=== PATIENT | male | born 1940 | race Caucasian/White ===

== ENCOUNTER 2018-11-12 15:01 | Inpatient (IN) ==
--- NOTE | 2018-11-12 16:01 | Diag Imaging Result Doc PS360 ---
EXAM: CHEST-1 VIEW - 11/12/2018 HISTORY: r/o pneumonia TECHNIQUE: One view chest COMPARISON: None. FINDINGS: Heart size appears normal. There are sternal wires from previous surgery. Inspiration is mildly shallow. There is subsegmental atelectasis at the left base. There is ill-defined infiltrate at the right base. There is chronic appearing deformity of the posterior right fifth rib. IMPRESSION: Mildly shallow inspiration, with mild segmental atelectasis at left base. Ill-defined infiltrate at right base suspicious for pneumonia. Electronically signed by Luis Bocanegra 11/12/2018 3:58 PM
[2018-11-12 16:14] LABS: BLOOD TYPE ARTERIAL; HCO3-(ACT) 25.6 mmoll (20.0-26.0); METHB 1.2 % (0.0-1.5); O2(CT) 18.1 mL/dL (15.0-23.0); O2HB 92.5 % (95.0-99.0); PCO2(98.6) 38 mmHg (35-45); PO2(98.6) 66 mmHg (60-100); SAMPLE BLOOD; SAO2 96.5 % (95.0-100.0); THB 13.9 g/dL (11.5-17.4); pH(98.6) 7.43 (7.35-7.45)
[2018-11-12 16:17] LABS: ALLEN TEST YES; MODALITY CANNULA
[2018-11-12 16:28] LABS: HEMOGLOBIN 13.2 g/dL (14.0-18.0); LYMPH% 9.3 % (20.5-51.1); MCH 30.7 PG (27-31); MCHC 33.8 g/dL (33-37); MCV 90.7 FL (81-99); MONO% 11.6 % (1.7-9.3); MPV 9.8 FL (7.4-10.4); NEUT% 78.7 % (42.2-75.2); PLT 199 X1000 (130-400); RDW 12.5 % (11.5-14.5); WBC 11.66 X1000 (4.8-10.8)
[2018-11-12 16:29] LABS: BASO# 0.01 X1000 (0.0-0.2); BASO% 0.1 % (0.0-0.8); IMM GRAN# 0.03 X1000 (0.0-0.04); IMM GRAN% 0.3 % (0.0-0.5); LYMPH# 1.08 X1000 (1.2-3.4); MONO# 1.35 X1000 (0.11-0.59); NEUT# 9.19 X1000 (1.4-6.5)
[2018-11-12] MEDS ORDERED: ZITHROMAX 500 MG/NS 500 MG/250 ML IVPB IV ONE (16:35)
[2018-11-12] MEDS ORDERED: ROCEPHIN IV ONE (16:35)
[2018-11-12 16:39] LABS: AGAP 14; ALKALINE PHOSPHATASE 72 U/L (32-122); BUN 26 mg/dL (8-22); CALCIUM 9.3 mg/dL (8.8-10.2); CHLORIDE 98 mmol/L (98-107); CK PROFILE 54 U/L (24-204); COSMO 279; CREATININE 1.1 mg/dL (0.7-1.2); ESTIMATED GFR > 60; GLUCOSE 132 mg/dL (70-104); GOT 17 U/L (10-34); GPT 13 U/L (10-44); POTASSIUM 4.3 mmol/L (3.5-5.1); SODIUM 136 mmol/L (136-145); TCO2 24 mmol/L (25-35); TOTAL PROTEIN 6.5 g/dL (6.3-8.3)
[2018-11-12 16:59] LABS: BILIRUBIN URINE NEGATIVE (NEGATIVE); BLOOD URINE NEGATIVE (NEGATIVE); CLARITY CLEAR (CLEAR); COLOR YELLOW; GLUCOSE URINE NEGATIVE (NEGATIVE); KETONE URINE TRACE mg/dL (NEGATIVE); LEUKOCYTES URINE TRACE (NEGATIVE); NITRITE URINE NEGATIVE (NEGATIVE); PROTEIN URINE 1+(30 mg/dL) mg/dL (NEGATIVE); UROBILINOGEN URINE 1 mg/dL
[2018-11-12 17:00] LABS: URINE BACTERIA NEGATIVE /HFP; URINE CAST GRANULAR PRESENT /LPF; URINE EPITHELIAL CELLS <10 /HPF (<10); URINE RBC <10 /HPF (<10); URINE SOURCE CLEAN CATCH; URINE WBC <10 /HPF (<10)
[2018-11-12 17:30] LABS: INR 1.26; PROTIME 16.4 Seconds (11.0-16.0)
[2018-11-12 17:31] LABS: PTT 35.8 Seconds (22.3-41.8)
--- NOTE | 2018-11-12 17:54 | Diag Imaging Result Doc PS360 ---
EXAM: CT ANGIOGRM PULMONARY ARTERIES 11/12/2018 HISTORY: rule out PE TECHNIQUE: This exam was performed using automated exposure control, adjustment of mA or kV according to patient size, and/or use of iterative reconstruction technique. COMMENT: 3-D MIPS were performed. There are no previous studies available for comparison. There are no filling defects in the pulmonary arteries. There are atherosclerotic calcified and noncalcified plaques in the thoracic aorta. There are calcifications in the coronary arteries and there has been previous sternotomy. There is no evidence of aortic dissection or aneurysm. The descending aorta is quite tortuous and passes over to the right before passing back through the hiatus. Considerable plaque is present at the level of the distal thoracic aorta. There is a large hiatal hernia. There is a large infrarenal abdominal aorta which is only partially imaged. This is at least 6 cm in diameter. 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 There is a previous abdominal study from 09/04/2010 at which time the abdominal aorta measured up to 4.6 cm. There is a small calcified gallstone in the gallbladder. There are granulomata in the spleen. There is COPD. There is some tree-in-bud opacities in both upper lobes and patchy alveolar opacities in the right lower lobe and posterior costophrenic sulci of both lower lobes. This is probably indicative of bronchopneumonia. IMPRESSION: 1. Bronchopneumonia. 2. Abdominal aortic aneurysm exceeding 6 cm in diameter. Electronically signed by Lorenzo Cope 11/12/2018 5:52 PM
[2018-11-12 19:56] LABS: INFLUENZA A NEGATIVE (NEGATIVE); INFLUENZA B NEGATIVE (NEGATIVE)
[2018-11-12] MEDS ORDERED: NS 1,000 ML IV ONE (20:24)
[2018-11-12] MEDS ORDERED: ZOFRAN IV PRN (20:24)
[2018-11-12] MEDS ORDERED: TYLENOL PO PRN (20:24)
--- NOTE | 2018-11-13 01:41 | HISTORY AND PHYSICAL ---
HISTORY OF PRESENT ILLNESS: The patient came in for shortness of breath. He is an 78-year-old gentleman with history of COPD, CAD, I do not think he is diabetic, high blood pressure, but in any case, he came in for evaluation. He is a patient of Dr. Julian in [place], previously in [place]. Has never been admitted curiously, at least not at this facility. He has been feeling short of breath with cough for the last 24 hours. He had a fever of 102. He was seen at Dr. Julian's office and he recommended going to the ER for evaluation for admission. He was a bit tachycardic when he came in. That has since improved. He is in the low 100s. He was hypoxic. Pulmonary angiogram showed bronchopneumonia which was mostly in the upper lobes and in the right lower lobe and he was admitted for treatment. PAST MEDICAL HISTORY: 1. Again, COPD. 2. CAD status post CABG, PCI. 3. Hypertension. 4. Dyslipidemia. 5. GERD with esophageal stricture. 6. History of CVA. PAST SURGICAL HISTORY: He has had the CABG that was in 2009. He is due for AAA surgery. They have been monitoring it since his CABG, but he has refused surgery. He sees Dr. Guy in [place], who is a vascular surgeon. He actually sent him to [facility] and the patient declined surgery after consultation there. He has a 6 cm AAA that he is not getting treatment for it and it looks like there is mural thrombus in it. FAMILY HISTORY: Positive for CAD in father. His brother had cancer, GI cancer, either pancreatic or possibly colon. They are not completely aware. SOCIAL HISTORY: No tobacco or ethanol. He is retired, . REVIEW OF SYSTEMS: Otherwise negative times a 10 point review of systems. PHYSICAL EXAMINATION: VITAL SIGNS: Blood pressure 110/68, heart rate of 104, respiratory rate of 24, temperature 98.4 degrees, 92% on 2 L. CARDIOVASCULAR: Regular rate and rhythm. PULMONARY: He had rales in both bases. No rhonchi. No wheezing. GASTROINTESTINAL: Soft, nontender, nondistended. Bowel sounds are positive. EXTREMITY: No clubbing or cyanosis. LYMPHATIC: No peripheral edema. NEUROLOGICAL: Exam was nonfocal. EYES: Pupils equal, round, reactive to light. Extraocular movements were intact. EAR NOSE AND THROAT: He had moist mucous membranes. SKIN: He had some telangiectasias on his face. MUSCULOSKELETAL: 4/5 in all 4 extremities. He had trace pulmonary edema. LABORATORY DATA: I do not think he had a very much of a white count, 11.6, hemoglobin and hematocrit 13 and 39, platelets of 199,000. Coagulation studies okay. PH 7.43, pCO2 of 38, PaO2 of 66. BUN is 26. ASSESSMENT: An 78-year-old male with chronic obstructive pulmonary disease and coronary artery disease presenting with shortness of breath, and cough, and hypoxia, fever and evidence of broncho pneumonia. 1. Bronchopneumonia. We will continue empiric antibiotics. He has been placed on Rocephin and azithromycin. I think that is reasonable so we will see how that works. We will give him breathing treatments, pulmonary toilet and follow. He does not have a lot of wheezing at this point so I am not going to add steroids. 2. Coronary artery disease, appears to be compensated. It is not clear that he has any heart failure. We will continue to monitor. He looks a bit on the dry side if anything. We will obtain all his home medications. At this point, I have no home medications whatsoever to verify and follow. DISPOSITION: Pending his clinical status. cc: Raoul Pruitt MD
[2018-11-13] MEDS ORDERED: DUONEB (A & A) INH PRN (09:12)
[2018-11-13] MEDS ORDERED: ROCEPHIN 1 GM in NS 50 ML IV SCH ×2 (09:15→17:00)
[2018-11-13] MEDS: SYMBICORT 160/4.5 MICROGM INHALER INH SCH ×2 (10:00→22:33)
[2018-11-13] MEDS: DUONEB (A & A) INH SCH ×3 (10:32→22:33)
[2018-11-13] MEDS ORDERED: MAALOX PLUS LIQUID PO PRN (10:47)
[2018-11-13] MEDS: ZITHROMAX 500 MG/NS 500 MG/250 ML IVPB IV SCH (10:59)
--- NOTE | 2018-11-13 11:04 | EKG Report ---
Test Performed on : 11/12/2018 3:33:37 PM Test Reason : ER Blood Pressure : / mmHG Vent. Rate : 122 BPM Atrial Rate : 122 BPM P-R Int : 184 ms QRS Dur : 100 ms QT Int : 298 ms P-R-T Axes : 056 025 072 degrees QTc Int : 424 ms Sinus tachycardia. with premature supraventricular complexes. Possible Inferior infarct , age undetermined Abnormal ECG No previous ECGs available Unconfirmed Result
[2018-11-13] MEDS: BENICAR PO SCH (11:08)
[2018-11-13] MEDS: PLAVIX PO SCH (11:08)
[2018-11-13] MEDS: ASPIRIN EC PO SCH (11:08)
[2018-11-13] MEDS: TOPROL XL PO SCH ×2 (11:09→21:16)
[2018-11-13] MEDS ORDERED: VITAMIN D PO SCH (17:00)
[2018-11-13] MEDS ORDERED: VITAMIN C PO SCH (17:00)
[2018-11-13] MEDS ORDERED: VITAMIN B-12 PO SCH (17:00)
[2018-11-13] MEDS ORDERED: VITAMIN E PO SCH (17:00)
[2018-11-13] MEDS ORDERED: FISH OIL CONCENTRATE PO SCH (17:00)
[2018-11-13] MEDS ORDERED: THERA M PLUS PO SCH (17:00)
--- NOTE | 2018-11-13 17:03 | PROGRESS NOTE ---
DATE: 11/13/2018 SUBJECTIVE: Patient has no focal complaints. OBJECTIVE: Blood pressure is 124/67, heart rate 97, respiratory rate 18, temperature 97.5 degrees, 95% on 2 L.Cardiovascular: Regular rate and rhythm. Pulmonary: Diminished at the bases. No wheezing or rales. GI: Soft, nontender, nondistended. Bowel sounds are positive. LABORATORY DATA: No new labs today. PROBLEM LIST: 1. Pneumonia. Bilateral lower lobe pneumonia, bronchopneumonia. We will continue empiric antibiotics. He is on Rocephin and azithromycin. Continue pulmonary toilet and incentive spirometry and follow clinically. 2. Chronic obstructive pulmonary disease without large exacerbation. We will continue breathing treatments and follow. I have not pursued any other etiology. 3. Hypertension. We will continue his regular medications and follow. DISPOSITION: Pending his clinical status, but if we can get him off oxygen, possibly discharge him tomorrow. cc: Raoul Pruitt MD
[2018-11-13] MEDS ORDERED: ZOCOR PO SCH (21:00)
[2018-11-13] MEDS ORDERED: VYTORIN 10/40 MG PO SCH (21:00)
[2018-11-13] MEDS ORDERED: FLOMAX PO SCH (21:00)
[2018-11-13] MEDS ORDERED: ZETIA PO SCH (21:00)
[2018-11-14] MEDS: DUONEB (A & A) INH SCH ×2 (03:24→09:53)
[2018-11-14] MEDS ORDERED: LOVENOX SUBQ SCH (06:00)
[2018-11-14 08:00] LABS: BASO# 0.01 X1000 (0.0-0.2); BASO% 0.1 % (0.0-0.8); EOS# 0.32 X1000 (0.0-0.7); EOS% 4.2 % (0.0-10.0); IMM GRAN# 0.02 X1000 (0.0-0.04); IMM GRAN% 0.3 % (0.0-0.5); LYMPH# 1.39 X1000 (1.2-3.4); LYMPH% 18.4 % (20.5-51.1); MCH 30.5 PG (27-31); MCHC 33.3 g/dL (33-37); MCV 91.4 FL (81-99); MONO% 13.2 % (1.7-9.3); NEUT# 4.83 X1000 (1.4-6.5); NEUT% 63.8 % (42.2-75.2); PLT 230 X1000 (130-400); RBC 3.94 XMIL (4.7-6.1); RDW 12.6 % (11.5-14.5); WBC 7.57 X1000 (4.8-10.8)
[2018-11-14 08:27] LABS: AGAP 12; CHLORIDE 102 mmol/L (98-107); POTASSIUM 3.9 mmol/L (3.5-5.1); SODIUM 138 mmol/L (136-145); TCO2 24 mmol/L (25-35)
[2018-11-14 08:28] LABS: BUN 21 mg/dL (8-22); CALCIUM 8.9 mg/dL (8.8-10.2); COSMO 280; CREATININE 0.9 mg/dL (0.7-1.2); ESTIMATED GFR > 60; GLUCOSE 131 mg/dL (70-104)
[2018-11-14] MEDS: BENICAR PO SCH (09:02)
[2018-11-14] MEDS: ZITHROMAX 500 MG/NS 500 MG/250 ML IVPB IV SCH (09:02)
[2018-11-14] MEDS: ASPIRIN EC PO SCH (09:03)
[2018-11-14] MEDS: PLAVIX PO SCH (09:03)
[2018-11-14] MEDS: TOPROL XL PO SCH (09:03)
[2018-11-14] MEDS: SYMBICORT 160/4.5 MICROGM INHALER INH SCH (09:53)
[2018-11-14 13:57] VITALS: BP 117/59
--- NOTE | 2018-11-15 11:28 | DISCHARGE SUMMARY ---
ADMISSION DATE: 11/12/2018 DISCHARGE DATE: 11/14/2018 He is breathing comfortably the day of discharge. Vitals are stable. He is standing up in his doorway, requesting to go home. He is not upset. He just feels good enough to go home. He feels much better. His white count is down to 7.5. He is breathing comfortably. I feel like he had pneumonia. We will discharge him on Omnicef, finish course of azithromycin, give him albuterol. He was on Symbicort. Follow up chest x-ray in 4 to 6 weeks. Follow up with PCP in 1 to 2 weeks and that would be Dr. Julian in [place]. A 32 minute discharge. cc: Raoul Pruitt MD
--- NOTE | 2018-11-15 14:38 | DISCHARGE SUMMARY ---
ADMISSION DATE: 11/12/2018 DISCHARGE DATE: 11/14/2018 PRIMARY CARE PHYSICIAN: Dr. Favian Julian. ADMISSION DIAGNOSES: 1. Bronchopneumonia. 2. Coronary artery disease, appears compensated. DISCHARGE DIAGNOSES: 1. Bilateral lower lobe pneumonia/bronchopneumonia. 2. COPD exacerbation without large exacerbation. 3. Hypertension. 4. Coronary artery disease, appears compensated. SUMMARY OF FINDINGS: This is an 78-year-old male who presented with shortness of breath and a cough for 24 hours prior to arrival, had a fever of 102, had been seen by his primary care physician who recommended him going to the ER for evaluation for admission. When he arrived he was a bit tachycardic, but that improved. He was hypoxic. Pulmonary arteriogram showed bronchopneumonia which was mostly in the upper lobes and in the right lower lobe. He was admitted, placed on IV antibiotics, DuoNebs, O2, pulmonary toilet. He responded well to the treatments. He is no longer complaining of shortness of breath. White blood cell count today is 7.57. He is saturating 93% on room air so it is felt that he can safely be discharged home today. DISCHARGE MEDICATIONS: A prescription for a Ventolin inhaler 2 puffs q.6 hours p.r.n., vitamin C 500 mg p.o. with supper, aspirin 81 mg p.o. daily, prescription for azithromycin 250 mg p.o. daily #4 with no refills, Symbicort 160/4.5 two puffs inhalation b.i.d., a prescription for cefdinir 300 mg p.o. b.i.d. #14 with no refills, vitamin D3 1000 units with supper, Plavix 75 mg p.o. daily, vitamin B12 500 mcg p.o. with supper, Vytorin 10/40 1 p.o. at bedtime, metoprolol 25 mg 1/2 tab p.o. b.i.d., multivitamin with minerals 1 p.o. with supper, olmesartan 20 mg p.o. daily, Fish Oil with omega-3 fatty acids 2 p.o. with supper, tamsulosin 0.4 mg p.o. at bedtime and vitamin E 400 units p.o. with supper. FOLLOWUP: He needs to follow up with his primary care physician in 1 to 2 weeks and call the office to schedule an appointment. He will also need a follow-up chest x-ray in 4 to 6 weeks. TIME SPENT: This is a 33 minute discharge. Dictated by MEME Duckworth for Raoul Pruitt MD cc: MEME Duckworth MD Charles D Coffey, MD [facility]
== END 2018-11-14 14:51 | disposition home or self-care (01) | DRG 194 ==
LOC: P.ED 15:01 → P.MEDSURG 19:55
PROVIDERS: ADMIT Internal Medicine
CPT/HCPCS: 36415; 71010; 71045; 71275; 80048; 80053; 80061; 80076; 81001; 82550; 82805; 83605; 83721; 84484; 85025; 85610; 85730; 87040; 87070; 87088; 87205; 87275; 87276; 87804; 89220; 93005; 94640; 94761; 94799; 96365; 96366; 96375; 99285; A9270; J0456; J0696; J1650; J7030; Q9967

== ENCOUNTER 2019-05-07 18:31 | Inpatient (IN) ==
--- NOTE | 2019-05-07 19:50 | Diag Imaging Result Doc PS360 ---
CHEST-2 VIEWS - 05/07/2019 INDICATION: COUGH COPD HX PNEUMONIA COMPARISON: 12/18/2018 FINDINGS: Stable sternotomy changes. Stable hiatal hernia. Heart size is top normal. There is significant infiltrate in the right lower lobe. No pneumothorax or pleural effusion. IMPRESSION: Right lower lobe pneumonia. Electronically signed by Ubaldo Goldberg 05/07/2019 7:48 PM
[2019-05-07] MEDS ORDERED: VANCOMYCIN 1 GM/NS 1 GM/250 ML IVPB IV ONE (20:09)
[2019-05-07] MEDS ORDERED: SOLU-MEDROL IV ONE (20:09)
[2019-05-07] MEDS ORDERED: ZOSYN 4.5 GM in NS 100 ML IV ONE (20:09)
[2019-05-07] MEDS ORDERED: DUONEB (A & A) INH ONE (20:09)
--- NOTE | 2019-05-07 20:32 | PROVIDER DOCUMENTATION ---
This chart was entered by Radha Segovia Scribe, acting as scribe for Ofe Rivero MD. HPI-General Adult - General Chief Complaint: Cough Stated Complaint: COLD SX Time Seen by Provider: 05/07/19 19:27 Source: patient Allergies/Adverse Reactions: Patient Allergies Allergy/AdvReac Type Severity Reaction Status Date / Time Antihistamines - Alkylamine AdvReac Unknown Verified 12/13/18 04:44 Home Medications: Home Medication List Medication Instructions Recorded Confirmed Last Taken Type Ascorbic Acid [Vitamin C] 500 mg PO WSUPPER 11/12/18 11/12/18 Unknown History Aspirin [Aspir-Low] 81 mg PO DAILY 11/12/18 11/12/18 05/07/19 History Budesonide/Formoterol Fumarate 2 puff INH BID 11/12/18 11/12/18 Unknown History [Symbicort 160-4.5 Mcg Inhaler] Cholecalciferol (Vitamin D3) 1,000 unit PO WSUPPER 11/12/18 11/12/18 Unknown His tory [Vitamin D3] Clopidogrel Bisulfate [Clopidogrel] 75 mg PO DAILY 11/12/18 11/12/18 Unknown History Cyanocobalamin [Vitamin B-12] 500 microgm PO WSUPPER 11/12/18 11/12/18 Unknown History Ezetimibe/Simvastatin [Vytorin 1 ea PO QHS 11/12/18 05/07/19 05/07/19 History 10-40 mg Tablet] Metoprolol Succinate E.r. [Toprol 0.5 tab PO BID 11/12/18 05/07/19 Unknown History Xl] Multivitamin with Minerals [One 1 ea PO WSUPPER 11/12/18 11/12/18 05/07/19 History Daily Energy] Olmesartan Medoxomil 20 mg PO DAILY 11/12/18 05/07/19 Unknown History Portal Oil/La Place-3 Fatty Acids 2 ea PO WSUPPER 11/12/18 11/12/18 05/07/19 History [Portal Oil 1,000 mg Softgel] Tamsulosin [Flomax] 0.4 mg PO QHS 11/12/18 05/07/19 05/07/19 History Vitamin E 400 unit PO WSUPPER 11/12/18 05/07/19 05/07/19 History Albuterol Sulfate Inhaler 2 puff INH Q6H PRN PRN #1 inhaler 11/14/18 Unknown Rx [Ventolin Hfa] Apixaban [Eliquis] 05/07/19 05/07/19 History - History of Present Illness -Gen Adult Nature of Presenting Problems: pt is a 78 yr old male presenting with complaint of weakness and loss of appetite, pt admits recent snf(3.5month) hospital stay with trach and feeding tube in place, pt reports he was sent to rehab x 2 weeks and has now been home for 1 week. pt admits increasing weakness and loss of appetite. today pt reports fever tmax 101 per home health. pt admits chronic cough with no change, denies any other complaints. pt seen by PCP yesterday Location of Pain/Injury: reports: none Pain Radiation: reports: no radiation Quality of Pain: reports: none Severity: reports: moderate Onset/Duration: reports: gradual Timing: reports: changing over time, getting worse Context/Activities at Onset: reports: rest Modifying Factors: improves with: nothing Associated Symptoms: reports: cough (chronic), fatigue, fever/chills, loss of appetite, weakness. denies: chest pain, shortness of breath Similar Symptoms Previously?: Yes Recently seen or treated by another doctor?: Yes Review of Systems - Adult - REVIEW OF SYSTEMS - ADULT Constitutional: reports: fever, fatique Eyes: reports: no symptoms reported Ears, Nose, Mouth & Throat: reports: no symptoms reported Cardiovascular: denies: chest pain, palpitations, syncope Respiratory: reports: chronic cough, dyspnea on exertion. denies: shortness of breath Gastrointestinal: reports: poor appetite. denies: abdominal pain, diarrhea, nausea, vomiting Genitourinary: reports: no symptoms reported Musculoskeletal: reports: no symptoms reported Integumentary: reports: no symptoms reported Neurological: denies: dizziness/vertigo, headache/migraines Psychiatric: reports: no symptoms reported Endocrine: reports: no symptoms reported Hematologic/Lymphatic: reports: no symptoms reported Allergic/Immunologic: reports: no symptoms reported All Other Systems: Reviewed and Negative Past History - Adult - PAST MEDICAL HISTORY-ADULT Review of Records: reports: Old Records Reviewed, Nursing Assessment Review, Medications Reviewed, Social history reviewed & non-contributory. Major Childhood Illnesses: reports: denies history Cardiovascular: reports: CAD, HTN, hyperlipidemia, ND Respiratory: reports: COPD Gastrointestinal: reports: GERD, other (ESPOHAGEAL STRICTURE) Obstetrical/Gynecological: reports: denies history Genitourinary: reports: denies history Musculoskeletal: reports: arthritis Neurological: reports: CVA, TIA Psychiatric: reports: denies history Endocrine/Immune: reports: denies history Other Conditions: reports: denies history - PRIOR SURGERIES/PROCEDURES Surgical/Procedure History: reports: CABG, cardiac stent - IMMUNIZATION STATUS Childhood Immunizations: See Nurse Assessment Flu Vaccine: UTD - FAMILY HISTORY Family History: reviewed, not pertinent - SOCIAL HISTORY Living Situation: family Physical Exam-General - PHYSICAL EXAM-ADULT Initial Vital Signs Reviewed: Yes - CONSTITUTIONAL General Appearance: alert, no apparent distress - EYES Eyes: PERRL/EOMI - HEAD, EARS, NOSE, MOUTH & THROAT HENMT: normocephalic/atraumatic, moist mucous membranes, normal ENT inspection - NECK Neck: non-tender, full range of motion, supple, normal inspection - RESPIRATORY Respiratory: chest non-tender, no respiratory distress, no accessory muscle use, decreased breath sounds (bilateral), crackles (left base) - CARDIOVASCULAR Cardiovascular: normal peripheral pulses, tachycardia, other (1-2+ bilateral edema). negative: no edema - GASTROINTESTINAL (ABDOMEN) Abdominal Exam: normal bowel sounds, non tender, soft - LYMPHATIC Lymphatic: no adenopathy - MUSCULOSKELETAL Back Exam: normal inspection, no vertebral tenderness Extremity: normal range of motion, non-tender, normal inspection - SKIN Integumentary: normal color, normal turgor, warm/dry - NEUROLOGIC Neurologic: grossly normal - PSYCHIATRIC Psych/Mental Status: normal mood/affect, oriented x 3 Progress - PLAN OF CARE/RESULTS Progress/Plan/Lab Results: Vital Signs - 8 hr 05/07/19 18:42 Temperature 98.1 F Pulse Rate 114 H Respiratory Rate 20 Blood Pressure 99/66 O2 Sat by Pulse Oximetry 96 Orders Category Date Time Status CHEST-2 VIEWS [RAD] Stat Exams 05/07/19 18:49 Completed BLOOD CULTURE [BLDCUL] Stat Lab 05/07/19 20:09 Uncollected CBC WITH ELECTRONIC DIFF [HEME] Stat Lab 05/07/19 20:09 Uncollected COMPREHENSIVE METABOLIC PANEL [CHEM] Stat Lab 05/07/19 20:09 Uncollected LACTATE, PLASMA [CHEM] Stat Lab 05/07/19 20:09 Uncollected PROTIME WITH INR [COAG] Stat Lab 05/07/19 20:09 Uncollected PTT [COAG] Stat Lab 05/07/19 20:09 Uncollected TROPONIN T Stat Lab 05/07/19 20:[address] W/POSS RFLX CULT [URINALYSIS] Stat Lab 05/07/19 20:09 Uncollected URINE CULTURE [RM] Stat Lab 05/07/19 20:09 Uncollected Albuterol 2.5MG/Ipratrop 0.5MG [Duoneb (A & A)] Med 05/07/19 20:09 Discont inued 3 ml INH NOW ONE Methylprednisolone Sod Succ [Solu-Medrol] Med 05/07/19 20:09 Discontinued 125 mg IV NOW ONE Piperacillin/Tazobactam [Zosyn] 4.5 gm Med 05/07/19 20:09 Active 0.9% Sodium Chloride Inj [Ns] 100 ml IV NOW Vancomycin 1 gm/Ns Med 05/07/19 20:09 Active 1 gm in 250 ml IV NOW Aerosol Treatments Routine Oth 05/07/19 20:10 Active Aerosol Treatments Stat Oth 05/07/19 20:10 Active Patient with CXR showing right sided PNA. he is hemodynamically stable. Patientwith normal lactate. We obtained blood cultures and urine cultures and started patient on vacn and zosyn for hcap. Spoke to Dr Dahl steam station supervisor for hospitalist who accepted patient for admission. stated he would place all orders. Result Diagrams: 05/07/19 20:20 05/07/19 20:20 - XRAY 1 XRAY Study: Chest Impression: Abnormal ( Signed CHEST-2 VIEWS - 05/07/2019 INDICATION: COUGH COPD HX PNEUMONIA COMPARISON: 12/18/2018 FINDINGS: Stable sternotomy changes. Stable hiatal hernia. Heart size is top normal. There is significant infiltrate in the right lower lobe. No pneumothorax or pleural effusion. IMPRESSION: Right lower lobe pneumonia. Electronically signed by Ubaldo Goldberg 05/07/2019 7:48 PM 05/07/191947 Interpreting Physician: Ubaldo Goldberg MD Dictated Date/Time: 05/07/191944 cc: Hira Menezes MD; Favian Julian) - CONSULTS/PCP/HOSPITALIST Notification Time Discussed: 22:00 Reason/Comments: Dr Dahl Consult Disposition: Will see in ED Departure - Departure Date of Disposition Decision: 05/07/19 Time of Disposition Decision: 22:00 DIAGNOSIS: HCAP (healthcare-associated pneumonia), Anemia, Hyperkalemia Disposition: ADMITTED INPATIENT 09 Certified Medical Emergency: Emergent Condition: Stable Referrals and Follow-Ups: Favian Julian [Primary Care Provider] - - Critical Care Note This patient required my direct & personal management of CC.: No Attestation - Physician/ BHUMI Attestation Patient care was provided by Advanced Practice Provider:: No The physician spent face to face time with patient:: Yes Advanced Practice Provider documentation review:: Supervising physician onsite and consulted in the evaluation and care of this patient. The physician did have a face to face encounter with the patient. This chart was documented by the indicated scribe, (Radha Segovia Scribe) and accurately reflects the services I performed and decisions made by me, Ofe Rivero MD, as attested by the provider's signature.
[2019-05-07 20:41] LABS: BASO# 0.01 X1000 (0.0-0.2); BASO% 0.1 % (0.0-0.8); EOS# 0.09 X1000 (0.0-0.7); EOS% 0.8 % (0.0-10.0); HEMATOCRIT 29.2 % (42.0-52.0); HEMOGLOBIN 8.9 g/dL (14.0-18.0); IMM GRAN# 0.03 X1000 (0.0-0.04); IMM GRAN% 0.3 % (0.0-0.5); LYMPH# 2.89 X1000 (1.2-3.4); LYMPH% 24.9 % (20.5-51.1); MCH 28.9 PG (27-31); MCHC 30.5 g/dL (33-37); MCV 94.8 FL (81-99); MONO# 1.18 X1000 (0.11-0.59); MONO% 10.2 % (1.7-9.3); MPV 8.6 FL (7.4-10.4); NEUT% 63.7 % (42.2-75.2); PLT 484 X1000 (130-400); RBC 3.08 XMIL (4.7-6.1)
[2019-05-07 20:41] LABS: BILIRUBIN URINE NEGATIVE (NEGATIVE); BLOOD URINE NEGATIVE (NEGATIVE); CLARITY CLEAR (CLEAR); COLOR YELLOW; GLUCOSE URINE NEGATIVE (NEGATIVE); KETONE URINE NEGATIVE (NEGATIVE); LEUKOCYTES URINE NEGATIVE (NEGATIVE); NITRITE URINE NEGATIVE (NEGATIVE); PROTEIN URINE NEGATIVE (NEGATIVE); SP GRAVITY URINE 1.015; UROBILINOGEN URINE NORMAL
[2019-05-07 20:45] LABS: URINE BACTERIA 1+ /HFP; URINE EPITHELIAL CELLS <10 /HPF (<10); URINE RBC <10 /HPF (<10); URINE SOURCE CLEAN CATCH; URINE WBC <10 /HPF (<10)
[2019-05-07 20:53] LABS: INR 1.2; PROTIME 15.8 Seconds (11.0-16.0)
[2019-05-07 20:54] LABS: PTT 44.4 Seconds (22.3-41.8)
[2019-05-07 21:28] LABS: AGAP 14; ALBUMIN 3.6 g/dL (3.5-5.0); ALKALINE PHOSPHATASE 89 U/L (32-122); BUN 40 mg/dL (8-22); CALCIUM 10.2 mg/dL (8.8-10.2); CHLORIDE 98 mmol/L (98-107); COSMO 284; ESTIMATED GFR > 60; GLUCOSE 112 mg/dL (70-104); GOT 22 U/L (10-34); GPT 18 U/L (10-44); POTASSIUM 5.4 mmol/L (3.5-5.1); SODIUM 137 mmol/L (136-145); TCO2 26 mmol/L (25-35)
[2019-05-07] MEDS ORDERED: NS 100 ML ONE (21:36)
[2019-05-07] MEDS ORDERED: TYLENOL PO PRN (23:13)
[2019-05-07] MEDS ORDERED: ZOFRAN IV PRN (23:13)
[2019-05-07] MEDS ORDERED: VANCOMYCIN IV PER PHARMACY MISC SCH (23:15)
[2019-05-08] MEDS: ZOSYN 3.375 GM in NS 50 ML IV SCH ×4 (01:57→22:45)
[2019-05-08] MEDS ORDERED: VANCOMYCIN 1 GM/NS 1 GM/250 ML IVPB IV ONE (03:00)
[2019-05-08 06:22] LABS: HEMATOCRIT 29.6 % (42.0-52.0); HEMOGLOBIN 8.9 g/dL (14.0-18.0); MCH 28.7 PG (27-31); MCHC 30.1 g/dL (33-37); MCV 95.5 FL (81-99); MPV 8.6 FL (7.4-10.4); RBC 3.1 XMIL (4.7-6.1); WBC 8.29 X1000 (4.8-10.8)
[2019-05-08] MEDS ORDERED: DUONEB (A & A) INH PRN (09:09)
[2019-05-08] MEDS: ELIQUIS PO SCH ×2 (09:47→20:09)
[2019-05-08] MEDS: DUONEB (A & A) INH SCH ×4 (10:59→23:23)
[2019-05-08 13:41] LABS: AGAP 12; ALBUMIN 3.5 g/dL (3.5-5.0); ALKALINE PHOSPHATASE 84 U/L (32-122); BUN 34 mg/dL (8-22); CALCIUM 10.3 mg/dL (8.8-10.2); CHLORIDE 99 mmol/L (98-107); COSMO 286; CREATININE 1.1 mg/dL (0.7-1.2); ESTIMATED GFR > 60; GLUCOSE 141 mg/dL (70-104); GOT 16 U/L (10-34); GPT 17 U/L (10-44); POTASSIUM 5.1 mmol/L (3.5-5.1); SODIUM 138 mmol/L (136-145); TCO2 27 mmol/L (25-35); TOTAL PROTEIN 7.8 g/dL (6.3-8.3)
[2019-05-08 13:45] LABS: AGAP 11; ALBUMIN 3.3 g/dL (3.5-5.0); ALKALINE PHOSPHATASE 83 U/L (32-122); BUN 35 mg/dL (8-22); CALCIUM 9.9 mg/dL (8.8-10.2); CHLORIDE 100 mmol/L (98-107); COSMO 288; CREATININE 1.1 mg/dL (0.7-1.2); ESTIMATED GFR > 60; GLUCOSE 185 mg/dL (70-104); GOT 15 U/L (10-34); GPT 15 U/L (10-44); POTASSIUM 5.4 mmol/L (3.5-5.1); SODIUM 138 mmol/L (136-145); TCO2 26 mmol/L (25-35); TOTAL PROTEIN 6.7 g/dL (6.3-8.3)
--- NOTE | 2019-05-08 14:32 | HISTORY AND PHYSICAL ---
Patient presented to the hospital with increased cough, congestion, increased work of breathing. He does have a history of pneumonia and intubation secondary to his pneumonia. He apparently stayed in the hospital 3-1/2 months with a tracheostomy and a feeding tube had been home for approximately 2 weeks. We are going to admit the patient to the hospital, IV antibiotics. Currently he is breathing okay and will follow. cc: Selvin Dahl MD
--- NOTE | 2019-05-08 18:17 | HISTORY AND PHYSICAL ---
CHIEF COMPLAINT: Fever, cough, some hematuria. HISTORY OF PRESENT ILLNESS: This is an 78-year-old gentleman who presents to the emergency room complaining of fever, cough and generalized weakness. The patient has had a recent prolonged hospitalization reportedly staying 3-1/2 months in the hospital with pneumonia, sepsis requiring a tracheostomy and feeding tube. He was sent to rehab for 2 weeks and has been home for 1 week. During the time that he has been at home he states he has had just generalized weakness that has gotten worse over the last 4 to 5 days, a loss of appetite down to eating just bites over the last 4 to 5 days. Prior to coming into the emergency room home health nurse reported a temperature of 101 degrees and recommended he come to the emergency room. He was found to have right lower lobe pneumonia. Blood cultures were obtained. He was given vancomycin and Zosyn and is being admitted for further evaluation and treatment. PAST MEDICAL HISTORY: 1. Recent pneumonia with respiratory arrest requiring tracheostomy which is now removed. 2. Anemia. 3. Chronic obstructive pulmonary disease. 4. Hypertension. 5. High cholesterol. 6. Coronary artery disease status coronary artery bypass graft. PAST SURGICAL HISTORY: Coronary artery bypass graft and cardiac stents. SOCIAL HISTORY: He denies alcohol, tobacco, or illicit drug use. He is , lives with his who is attentive with his care. ALLERGIES: Antihistamines with unknown reaction. HOME MEDICATIONS: A list will be obtained by the nursing staff and once verified will review and restart as appropriate. REVIEW OF SYSTEMS: Discussed with the patient with pertinent positives stated in the HPI. He denied any syncope or dizziness, any chest pain or palpitations, any nausea, vomiting, diarrhea, constipation, black or bloody vomitus or stools, any hematuria, any gross hematuria, dysuria, frequency, urgency. PHYSICAL EXAM: This is a an 78-year-old gentleman who is sitting up on the bed on the [facility] floor in no distress. VITAL SIGNS: Blood pressure is 96/51 with a heart rate of 80, respirations are 20, temperature is 97.5 degrees oral with O2 saturations 94 to 96 percent on 2 L nasal cannula. HEENT: Head is normocephalic, atraumatic. Mucous membranes are moist. NECK: Supple with trachea midline. He has no JVD. CARDIOVASCULAR: Regular rate and rhythm. S1 and S2 appreciated. He is tachycardic at intervals. He has bilateral lower extremity edema to just above his knees. Calves are nontender bilateral with peripheral pulses palpable x4 extremities. PULMONARY: Breath sounds with some crackles at the right base. Chest rise and fall symmetric respiration. Chest wall is nontender to palpation. GASTROINTESTINAL: Abdomen soft, nontender, nondistended with bowel sounds in all 4 quadrants. GENITOURINARY: No CVA or suprapubic tenderness. NEUROLOGIC: He is alert and oriented x3. SKIN: Warm and dry. LABS: WBC is 11.6 with hemoglobin 8.9, hematocrit 29.2 and platelets of 484,000. Sodium 137, potassium 5.4, BUN 40, creatinine 1 with a glucose of 112. Blood cultures are pending. Urine culture revealed no growth. Chest x-ray revealed right lower lobe pneumonia. ASSESSMENT AND PLAN: 1. Right lower lobe pneumonia. Blood cultures have been obtained. We will continue with vancomycin and Zosyn for antibiotic coverage as for health care-acquired as the patient has had a recent 3-1/2 month stay in the hospital in rehab. Incentive spirometer with DuoNeb q.4 hours and q.2 hours p.r.n., have him up in a chair 3 times a day with meals and p.r.n. 2. Chronic obstructive pulmonary disease with breathing treatments and pulmonary toilet. 3. Hypertension. Will identify his home medications and continue as appropriate. 4. Anemia. We will draw anemia labs. Stool for occult blood and trend CBC daily. 5. History of coronary artery disease aware. 6. Leukocytosis secondary to pneumonia. Antibiotics as stated above. 7. Hyperkalemia. hold any potassium supplements, trend labs daily. Continue with IV gentle hydration. CBC, CMP, magnesium in the morning. sputum culture. Further treatments pending hospital course. Plan was discussed with Dr. Dahl. Dictated by MEME Hendrickson for Selvin Dahl MD cc: MEME Hendrickson MD [facility]
[2019-05-08] MEDS: FLOMAX PO SCH (20:09)
[2019-05-09] MEDS: ZOSYN 3.375 GM in NS 50 ML IV SCH ×4 (03:16→21:45)
[2019-05-09] MEDS: VANCOMYCIN 1,800 MG in NS 500 ML IV SCH (04:53)
[2019-05-09 06:01] LABS: HEMATOCRIT 26.1 % (42.0-52.0); HEMOGLOBIN 7.7 g/dL (14.0-18.0); MCH 28.4 PG (27-31); MCHC 29.5 g/dL (33-37); MCV 96.3 FL (81-99); MPV 8.7 FL (7.4-10.4); RBC 2.71 XMIL (4.7-6.1); WBC 9.41 X1000 (4.8-10.8)
[2019-05-09 06:16] LABS: AGAP 11; ALBUMIN 3.1 g/dL (3.5-5.0); ALKALINE PHOSPHATASE 72 U/L (32-122); BUN 39 mg/dL (8-22); CALCIUM 9.8 mg/dL (8.8-10.2); CHLORIDE 100 mmol/L (98-107); COSMO 286; CREATININE 1.1 mg/dL (0.7-1.2); ESTIMATED GFR > 60; GLUCOSE 110 mg/dL (70-104); GOT 16 U/L (10-34); GPT 16 U/L (10-44); MAGNESIUM 1.6 mg/dL (1.5-2.7); POTASSIUM 4.1 mmol/L (3.5-5.1); SODIUM 138 mmol/L (136-145); TCO2 27 mmol/L (25-35); TOTAL BILIRUBIN < 0.15 mg/dL (0.20-1.00); TOTAL PROTEIN 6.7 g/dL (6.3-8.3)
[2019-05-09] MEDS: DUONEB (A & A) INH SCH ×5 (08:04→23:06)
[2019-05-09] MEDS: ELIQUIS PO SCH ×2 (10:27→20:04)
--- NOTE | 2019-05-09 14:16 | PROGRESS NOTE ---
DATE: 05/09/2019 SUBJECTIVE: The patient notes that he is feeling better. He is having less cough, congestion, less shortness of breath. PHYSICAL: Temperature 97.8, pulse 90, respiratory 20, BP 123/69.General: Patient is awake, alert. He is lying in bed. He is in no current respiratory distress. HEENT: Normocephalic. Neck: Supple. Cardiovascular: Regular rate. Chest: Clear. Abdomen: Soft. Extremities: Moves all extremities. ASSESSMENT: 1. Anemia. Hemoglobin and hematocrit has dropped slightly to 7 and 26. 2. Hyperkalemia resolved. 3. Right lower lobe pneumonia improved. 4. Chronic obstructive pulmonary disease with mild exacerbation improved. 5. Leukocytosis resolved. PLAN: We are going continue antibiotics, continue breathing treatments, oxygen. Hopefully can discharge home over the next 1 or 2. cc: Selvin Dahl MD
[2019-05-09] MEDS: FLOMAX PO SCH (20:04)
[2019-05-10] MEDS: ZOSYN 3.375 GM in NS 50 ML IV SCH (03:10)
[2019-05-10] MEDS: VANCOMYCIN 1,800 MG in NS 500 ML IV SCH (04:47)
[2019-05-10 05:46] LABS: HEMATOCRIT 26.1 % (42.0-52.0); HEMOGLOBIN 7.7 g/dL (14.0-18.0); MCH 28.5 PG (27-31); MCHC 29.5 g/dL (33-37); MCV 96.7 FL (81-99); MPV 7.9 FL (7.4-10.4); RBC 2.7 XMIL (4.7-6.1); WBC 6.91 X1000 (4.8-10.8)
[2019-05-10 05:59] LABS: AGAP 11; BUN 28 mg/dL (8-22); CALCIUM 9.6 mg/dL (8.8-10.2); CHLORIDE 104 mmol/L (98-107); COSMO 291; ESTIMATED GFR > 60; GLUCOSE 100 mg/dL (70-104); POTASSIUM 4.2 mmol/L (3.5-5.1); SODIUM 143 mmol/L (136-145); TCO2 29 mmol/L (25-35)
[2019-05-10] MEDS ORDERED: NS 500 ML IV ONE (07:05)
[2019-05-10] MEDS: DUONEB (A & A) INH SCH ×3 (07:26→15:49)
[2019-05-10] MEDS ORDERED: DOXYCYCLINE PO SCH (09:00)
[2019-05-10] MEDS ORDERED: OMNICEF PO SCH (09:00)
[2019-05-10] MEDS: ELIQUIS PO SCH (10:40)
[2019-05-10] MEDS ORDERED: NS 500 ML ONE (13:35)
[2019-05-10 17:07] VITALS: BP 129/64
--- NOTE | 2019-05-11 14:05 | DISCHARGE SUMMARY ---
ADMISSION DATE: 05/08/2019 DISCHARGE DATE: 05/10/2019 ADMISSION DIAGNOSES: 1. Right lower lobe pneumonia. 2. Chronic obstructive pulmonary disease. 3. Hypertension. 4. Anemia. 5. History of coronary artery disease. 6. Leukocytosis secondary to pneumonia. 7. Hyperkalemia. DISCHARGE DIAGNOSES: 1. Anemia. Hemoglobin and hematocrit a little low at 7 and 26 but it did not drop from yesterday. 2. Hyperkalemia, resolved. 3. Right lower lobe pneumonia, improved. 4. Chronic obstructive pulmonary disease with mild exacerbation, improved. 5. Leukocytosis, resolved. CONSULTATIONS: None. SURGERIES AND PROCEDURES: None. HOSPITAL COURSE: Mr. Venkatesh Hargrove is an 78-year-old male who presented to [facility] complaining of fever, cough, generalized weakness. Had recently had a hospitalization of 3-1/2 months in the hospital with pneumonia, sepsis, and tracheostomy and feeding tube. He went to rehab for 2 weeks, was home for about a week when he started developing the symptoms of weakness that have progressed to the cough and fever. He also had decreased appetite. His health care nurse had noticed that he had a fever of 101 and sent him to the emergency department. He was found to have a right lower lobe pneumonia. Blood cultures were obtained. He was started on broad-spectrum antibiotics and treated for a mild COPD exacerbation. He was hyperkalemic as well but that resolved. DISCHARGE VITAL SIGNS: Temperature 97.6 degrees, heart rate 103, respiratory rate 18, blood pressure 100/56, O2 saturation 98% on room air. DISCHARGE LAB DATA: White blood cells 6000, hemoglobin 7, hematocrit 26, platelet count 496,000. Sodium 143, potassium 4.2, BUN 28, creatinine is 1.0, glucose 100, calcium is 9.6. IMAGING: Chest x-ray, right lower lobe pneumonia. DISCHARGE MEDICATIONS: 1. Doxycycline 100 mg p.o. twice daily. 2. Cefdinir or Omnicef 300 mg p.o. twice daily. 3. Albuterol 2 puffs inhaled every 6 hours as needed. 4. Flomax 0.4 mg p.o. nightly. 5. Vytorin 1 tablet p.o. nightly. 6. Aspirin 81 mg p.o. daily. 7. Plavix 75 mg p.o. daily. Actually, that is questionable. I am not sure if he is on that one. 8. Eliquis 2.5 mg p.o. twice daily. 9. Olmesartan medoxomil 20 mg p.o. daily. 10. Multivitamin 1 p.o. daily. 11. Fish oil omega-3 two p.o. with supper. 12. Budesonide/formoterol fumarate 10.2 g inhaled twice daily. 13. Toprol-XL 12.5 mg p.o. twice daily. 14. Vitamin B12 with 500 mcg p.o. daily. 15. Vitamin C 500 mg p.o. with supper. 16. Vitamin D3 with 1000 units p.o. daily. 17. Vitamin E 400 units p.o. with supper. PHYSICIAN FOLLOWUP: Dr. Favian Julian. DISCHARGE INSTRUCTIONS: Return to the emergency department with any concerns about fever, chills, shortness of breath, coughing up any colors, and to take your 2 antibiotics as prescribed. Please follow up with your primary care provider. If there is any change in her condition, please contact physician and/or return to the emergency department. Changes may include, but are not limited to shortness of breath, increased fatigue, excessive bleeding, unexplained weight loss or gain, unmanageable pain, signs or symptoms of infection. DISCHARGE ACTIVITY: As tolerated. DISCHARGE DIET: Regular diet. DISCHARGE DISPOSITION: Home. Dictated by MEME Layne for Selvin Dahl MD cc: MEME Layne MD
--- NOTE | 2019-05-11 20:19 | DISCHARGE SUMMARY ---
ADMISSION DATE: 05/08/2019 DISCHARGE DATE: 05/10/2019 Patient seen and examined by myself. Full note dictated and discussed with nurse practitioner. Patient presented to the hospital and diagnosed with right lower lobe pneumonia and anemia. He was typed, crossed, and transfused, given 1 unit of blood. His hemoglobin and hematocrit were initially 8 and dropped to 7 and 26 after admission. He was placed in the hospital, given IV fluids, antibiotics, breathing treatments. He was able to wean off oxygen. On discharge, he is awake, alert, and notes that he is feeling much better. He is having no difficulty breathing and no difficulty ambulating; therefore, he will be discharged home. Please see full note. cc: Selvin Dahl MD
== END 2019-05-10 17:29 | disposition home or self-care (01) | DRG 194 ==
LOC: P.ED 18:31 → P.MEDSURG 05-08 00:13
PROVIDERS: ATTEND Family Medicine